=== PATIENT | male | born 1995 | race Caucasian/White ===

== ENCOUNTER 2022-02-09 07:59 | Emergency (ER) | payer BC, SELFPAY ==
[2022-02-09 08:14] VITALS: BP 143/84; PULSE 73; RESP 16; TEMP 36.8; O2SAT 97; BMI 34.9
[2022-02-09 08:16] VITALS: BP 143/84; PULSE 76; RESP 18; TEMP 36.3; O2SAT 96; BMI 34.9
--- NOTE | 2022-02-09 08:27 | ED_ITS ---
Documented by User: Sandra Muhammad, DEAN OF ADMISSIONS-C 02/09/22 15:56 HPI - General Adult General: Chief complaint: General Medical Stated complaint: Throat is swollen up Time Seen by Provider: 02/09/22 08:01 History of Present Illness: Patient is in today for complaints of throat swelling. He reports that for 2 days he has had nasal congestion and drainage. He reports that this morning he woke up and the left side of his throat feels swollen in his tonsil. He reports that he has some pain with swallowing. He denies any difficulty breathing. He denies any fever, chills, nausea, vomiting. Associated symptoms: Deny chest pain, dyspnea, nausea, palpitations or vomiting Review of Systems Const: Denies: fever(s), chills or body aches ENMT: Reports: throat pain, enlarged tonsils, odynophagia, nasal discharge, nasal congestion and post nasal drip Card: Denies: chest pain, palpitations or irregular heart rhythm Resp: Denies: dyspnea, wheezing or stridor GI: Denies: abdominal pain, nausea or vomiting Physical Exam Const: COMMON NORMALS: no acute distress, patient oriented x3 and alert HENMT: COMMON NORMALS: TM's normal bilaterally TYMPANIC MEMBRANE: TM's normal bilaterally THROAT: uvula midline, abnormal tonsil left (Left tonsil enlarged) erythema and postnasal drainage Neck/C-Spine: COMMON NORMALS: no JVD Resp: COMMON NORMALS: normal respiratory effort, No retractions, No use of accessory muscles and clear to auscultation bilaterally AUSCULTATION: clear to auscultation bilaterally Cardio: COMMON NORMALS: no JVD, regular rate, regular rhythm, S1 normal heart sound present, S2 normal heart sound present and No murmurs present (Cardio) RATE: regular rate RHYTHM: regular rhythm HEART SOUNDS: S1 normal heart sound present and S2 normal heart sound present Neuro: COMMON NORMALS: patient oriented x3 SENSORIUM/ORIENTATION: Yes alert Course Vital Signs: Vital signs: Vital Signs Temperature 97.4 F L 02/09/22 08:16 Pulse Rate 76 02/09/22 08:16 Respiratory Rate 18 02/09/22 08:16 Blood Pressure 143/84 02/09/22 08:16 Pulse Oximetry 96 02/09/22 08:16 Oxygen Delivery In thod 02/09/22 08:16 [facility] - General Adult Medical Decision Making 26-year-old male in today for complaints of throat swelling on the left side. He reports that his tonsil is large. He has not had any fever or chills. He does report some nasal congestion and drainage over the past couple of days which he attributed to allergies. Physical exam reveals a patient in no acute distress. There is a moderate amount of postnasal drainage noted in the posterior oropharynx. Posterior oropharynx is erythematous and has a slight cobblestone appearance. The left side tonsil is slightly enlarged. Uvula is midline he does have an extra flap of skin that hangs on his posterior uvula which he reports is a chronic finding. Airway appears patent. Little concern for peritonsillar abscess as there is no swelling up into the palate. Patient is able to fully open and close the jaw. He is talking normally. No signs of r espiratory distress. Swab patient for strep pharyngitis today. Rapid strep is negative. We will treat patient for allergic rhinitis acute pharyngitis. Provide patient with steroid burst pack to help with sensation of of edema in his throat and also to help with control of nasal allergies. Follow-up with primary care provider. Return to the ER for any new or worsening symptoms. Lab Data Laboratory Results Group A Strep Rapid Negative (Negative) 02/09/22 08:27 Discharge Plan Discharge Patient Disposition: Home Clinical Impression: Acute pharyngitis, unspecified, Tonsillar enlargement Prescriptions: New prednisone 20 mg tablet 40 mg PO DAILY 5 Days Qty: 10 0RF Discharge Orders: Discharge ED (Routine); Ordered 02/09/22 Ordered By: Sandra Muhammad Referrals: German Story, DEAN OF ADMISSIONS-C [Nurse Practitioner] - Discharge Diet: Usual diet Discharge Activity: Resume usual activity Patient Instructions: Prednisone (By mouth), Pharyngitis (ED) Activity Restrictions/Additional Instructions: Take medication as prescribed. Use warm salt water gargles to help with postnasal drainage. You may use [id number] allergy medication such as Claritin or Zyrtec. Use Flonase to help manage allergic rhinitis. Follow-up in the emergency room as needed for new or worsening symptoms, worsening swelling in the throat, shortness of breath, difficulty swallowing or breathing. Follow- up with your primary care provider as needed. 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 He reports that his tonsil is large. He has not had any fever or chills. He does report some nasal congestion and drainage over the past couple of days which he attributed to allergies. Physical exam reveals a patient in no acute distress. There is a moderate amount of postnasal drainage noted in the posterior oropharynx. Posterior oropharynx is erythematous and has a slight cobblestone appearance. The left side tonsil is slightly enlarged. Uvula is midline he does have an extra flap of skin that hangs on his posterior uvula which he reports is a chronic finding. Airway appears patent. Little concern for peritonsillar abscess as there is no swelling up into the palate. Patient is able to fully open and close the jaw. He is talking normally. No signs of respiratory distress. Swab patient for strep pharyngitis today. Rapid strep is negative. We will treat patient for allergic rhinitis acute pharyngitis. Provide patient with steroid burst pack to help with sensation of of edema in his throat and also to help with control of nasal allergies. Follow-up with primary care provider. Return to the ER for any new or worsening symptoms. Chart reviewed and patient discussed with midlevel. Agree with assessment and plan. Lab Data Laboratory Results Group A Strep Rapid Negative (Negative) 02/09/22 08:27 Discharge Plan Discharge Patient Disposition: Home Clinical Impression: Acute pharyngitis, unspecified, Tonsillar enlargement Prescriptions: New prednisone 20 mg tablet 40 mg PO DAILY 5 Days Qty: 10 0RF Discharge Orders: Discharge ED (Routine); Ordered 02/09/22 Ordered By: Sandra Muhammad Referrals: German Story FNP-C [Nurse Practitioner] - Discharge Diet: Usual diet Discharge Activity: Resume usual activity Patient Instructions: Prednisone (By mouth), Pharyngitis (ED) Activity Restrictions/Additional Instructions: Take medication as prescribed. Use warm salt water gargles to help with postnasal drainage. You may use [id number] allergy medication such as Claritin or Zyrtec. Use Flonase to help manage allergic rhinitis. Follow-up in the emergency room as needed for new or worsening symptoms, worsening swelling in the throat, shortness of breath, difficulty swallowing or breathing. Follow-up with your primary care provider as needed. 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
[2022-02-09 09:01] LABS: Rapid Strep A Test Negative (Negative)
== END 2022-02-09 10:11 | disposition home or self-care (01) ==
PROVIDERS: Emergency Provider Nurse Practitioner Family; PCP Family Medicine
DX: J02.9 Acute pharyngitis, unspecified (principal); J35.1 Hypertrophy of tonsils
CPT/HCPCS: 87081; 87880; 99283

== ENCOUNTER → 2022-04-21 13:41 | Outpatient (BNVA) | payer BC, MEDICAID, SELFPAY | PROVIDERS: PCP Family Medicine; Visit Provider Nurse Practitioner Family | DX: R50.9 Fever, unspecified (principal); J10.1 Influenza due to other identified influenza virus with other respiratory manifestations | CPT/HCPCS: 87400 ==